=== PATIENT | female | born 1985 | race Two or more races ===

== ENCOUNTER 2022-05-22 15:01 | Emergency (ER) | payer OTHER ==
[~2022-05-22] VITALS: Ht 167.6 cm; Wt 81.6 kg
[2022-05-22] MEDS ORDERED: MEDI-MECLIZINE25 MG PO (19:26)
== END 2022-05-22 19:32 | disposition home or self-care (01) ==
LOC: ER 15:01
DX: H81.10 Benign paroxysmal vertigo, unspecified ear (principal)